=== PATIENT | male | born 1930 | race African-American/Black ===

== ENCOUNTER 2017-04-20 12:52 | Outpatient (CLI) | payer MEDICARE, OTHER ==
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
== END 2017-04-20 12:53 | disposition home or self-care (01) ==
LOC: WCC 12:52
PROVIDERS: ATTEND Family Medicine
DX: E11.621 Type 2 diabetes mellitus with foot ulcer (principal); L97.519 Non-pressure chronic ulcer of other part of right foot with unspecified severity; I10 Essential (primary) hypertension; Z85.038 Personal history of other malignant neoplasm of large intestine
CPT/HCPCS: 36416; 97602; 99203; G0463

== ENCOUNTER 2017-04-22 10:40 | Outpatient (CLI) | payer OTHER ==
[2017-04-22] MEDS ORDERED: Lidocaine 4% Topical Sol 50 ML BOT ONE (11:11)
[2017-04-22] MEDS ORDERED: Sodium Chloride 0.9% 15 ML NEB ONE (11:11)
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
== END 2017-04-22 10:41 | disposition home or self-care (01) ==
LOC: WCC 10:40
PROVIDERS: ATTEND Family Medicine
DX: E11.621 Type 2 diabetes mellitus with foot ulcer (principal); L97.419 Non-pressure chronic ulcer of right heel and midfoot with unspecified severity; I10 Essential (primary) hypertension; I82.419 Acute embolism and thrombosis of unspecified femoral vein
CPT/HCPCS: 29581; 36416; A4218; J2001

== ENCOUNTER 2017-04-24 12:54 | Outpatient (CLI) | payer OTHER | END 2017-04-24 12:55 | disposition home or self-care (01) | LOC: WCC 12:54 | PROVIDERS: ATTEND Family Medicine | DX: E11.621 Type 2 diabetes mellitus with foot ulcer (principal); L97.519 Non-pressure chronic ulcer of other part of right foot with unspecified severity | CPT/HCPCS: 97606 ==

== ENCOUNTER 2017-04-29 10:15 | Outpatient (CLI) | payer OTHER ==
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
== END 2017-04-29 10:16 | disposition home or self-care (01) ==
LOC: WCC 10:15
PROVIDERS: ATTEND Family Medicine
DX: E11.621 Type 2 diabetes mellitus with foot ulcer (principal); L97.419 Non-pressure chronic ulcer of right heel and midfoot with unspecified severity; I10 Essential (primary) hypertension; I82.419 Acute embolism and thrombosis of unspecified femoral vein
CPT/HCPCS: 36416; 97605

== ENCOUNTER 2017-05-08 12:49 | Outpatient (CLI) | payer OTHER, SELFPAY | END 2017-05-08 12:50 | disposition home or self-care (01) | LOC: WCC 12:49 | PROVIDERS: ATTEND Family Medicine | DX: E11.621 Type 2 diabetes mellitus with foot ulcer (principal); L97.519 Non-pressure chronic ulcer of other part of right foot with unspecified severity | CPT/HCPCS: 97606 ==

== ENCOUNTER 2017-05-11 08:35 | Outpatient (CLI) | payer OTHER ==
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
== END 2017-05-11 08:36 | disposition home or self-care (01) ==
LOC: WCC 08:35
PROVIDERS: ATTEND Family Medicine
DX: E11.621 Type 2 diabetes mellitus with foot ulcer (principal); L97.519 Non-pressure chronic ulcer of other part of right foot with unspecified severity; I10 Essential (primary) hypertension; I82.419 Acute embolism and thrombosis of unspecified femoral vein
CPT/HCPCS: 36416; 97605

== ENCOUNTER 2017-05-14 09:35 | Outpatient (CLI) | payer SELFPAY ==
[2017-05-14] MEDS ORDERED: Sodium Chloride 0.9% 15 ML NEB ONE (16:56)
== END 2017-05-14 09:36 | disposition home or self-care (01) ==
LOC: WCC 09:35
PROVIDERS: ATTEND Family Medicine
DX: E11.621 Type 2 diabetes mellitus with foot ulcer (principal); L97.519 Non-pressure chronic ulcer of other part of right foot with unspecified severity
CPT/HCPCS: 36416; 97605; A4218

== ENCOUNTER 2017-05-18 08:19 | Outpatient (CLI) | payer MEDICARE, SELFPAY | END 2017-05-18 08:20 | disposition home or self-care (01) | LOC: WCC 08:19 | PROVIDERS: ATTEND Family Medicine | DX: E11.621 Type 2 diabetes mellitus with foot ulcer (principal); L97.519 Non-pressure chronic ulcer of other part of right foot with unspecified severity | CPT/HCPCS: 36416; 97606 ==

== ENCOUNTER 2017-05-20 09:23 | Outpatient (CLI) | payer SELFPAY ==
[2017-05-20] MEDS ORDERED: Lidocaine 2% Jelly 5 ML TUBE ONE (17:25)
== END 2017-05-20 09:24 | disposition home or self-care (01) ==
LOC: WCC 09:23
PROVIDERS: ATTEND Family Medicine
DX: E11.621 Type 2 diabetes mellitus with foot ulcer (principal); L97.519 Non-pressure chronic ulcer of other part of right foot with unspecified severity
CPT/HCPCS: 36416; 97606

== ENCOUNTER 2017-05-25 09:07 | Outpatient (CLI) | payer SELFPAY ==
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
[2017-05-25] MEDS ORDERED: Sodium Chloride 0.9% 15 ML NEB ONE (17:05)
== END 2017-05-25 09:08 | disposition home or self-care (01) ==
LOC: WCC 09:07
PROVIDERS: ATTEND Family Medicine
DX: E11.621 Type 2 diabetes mellitus with foot ulcer (principal); L97.519 Non-pressure chronic ulcer of other part of right foot with unspecified severity; I82.411 Acute embolism and thrombosis of right femoral vein; I10 Essential (primary) hypertension
CPT/HCPCS: 36416; A4218

== ENCOUNTER 2017-05-27 11:13 | Outpatient (CLI) | payer SELFPAY ==
[2017-05-27] MEDS ORDERED: Sodium Chloride 0.9% 15 ML NEB ONE (17:00)
[2017-05-27] MEDS ORDERED: Lidocaine 4% Topical Sol 50 ML BOT ONE (17:00)
== END 2017-05-27 11:14 | disposition home or self-care (01) ==
LOC: WCC 11:13
PROVIDERS: ATTEND Family Medicine
DX: E11.621 Type 2 diabetes mellitus with foot ulcer (principal); L97.419 Non-pressure chronic ulcer of right heel and midfoot with unspecified severity
CPT/HCPCS: 36416; 97606; A4218; J2001

== ENCOUNTER 2017-05-29 11:28 | Outpatient (CLI) | payer SELFPAY ==
[2017-05-29] MEDS ORDERED: Sodium Chloride 0.9% 15 ML NEB ONE (17:12)
== END 2017-05-29 11:29 | disposition home or self-care (01) ==
LOC: WCC 11:28
PROVIDERS: ATTEND Family Medicine
DX: E11.621 Type 2 diabetes mellitus with foot ulcer (principal); L97.419 Non-pressure chronic ulcer of right heel and midfoot with unspecified severity
CPT/HCPCS: 97606; A4218

== ENCOUNTER 2017-06-01 08:33 | Outpatient (CLI) | payer SELFPAY ==
[2017-06-01] MEDS ORDERED: Sodium Chloride 0.9% 15 ML NEB ONE (17:07)
== END 2017-06-01 08:34 | disposition home or self-care (01) ==
LOC: WCC 08:33
PROVIDERS: ATTEND Family Medicine
DX: E11.621 Type 2 diabetes mellitus with foot ulcer (principal); L97.419 Non-pressure chronic ulcer of right heel and midfoot with unspecified severity
CPT/HCPCS: 36416; 97605; A4218

== ENCOUNTER 2017-06-03 13:07 | Outpatient (CLI) | payer SELFPAY ==
[2017-06-03] MEDS ORDERED: Sodium Chloride 0.9% 15 ML NEB ONE (17:09)
== END 2017-06-03 13:08 | disposition home or self-care (01) ==
LOC: WCC 13:07
PROVIDERS: ATTEND Family Medicine
DX: E11.621 Type 2 diabetes mellitus with foot ulcer (principal); L97.419 Non-pressure chronic ulcer of right heel and midfoot with unspecified severity
CPT/HCPCS: 36416; 97605; A4218

== ENCOUNTER 2017-06-05 10:53 | Outpatient (CLI) | payer SELFPAY ==
[2017-06-05] MEDS ORDERED: Sodium Chloride 0.9% 15 ML NEB ONE (10:58)
== END 2017-06-05 10:54 | disposition home or self-care (01) ==
LOC: WCC 10:53
PROVIDERS: ATTEND Family Medicine
DX: E11.621 Type 2 diabetes mellitus with foot ulcer (principal); L97.419 Non-pressure chronic ulcer of right heel and midfoot with unspecified severity
CPT/HCPCS: 36416; 97605; A4218

== ENCOUNTER 2017-06-08 10:10 | Outpatient (CLI) | payer SELFPAY ==
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
[2017-06-08] MEDS ORDERED: Sodium Chloride 0.9% 15 ML NEB ONE (22:49)
== END 2017-06-08 10:11 | disposition home or self-care (01) ==
LOC: WCC 10:10
PROVIDERS: ATTEND Family Medicine
DX: E11.621 Type 2 diabetes mellitus with foot ulcer (principal); L97.519 Non-pressure chronic ulcer of other part of right foot with unspecified severity; I82.419 Acute embolism and thrombosis of unspecified femoral vein; I10 Essential (primary) hypertension; Z85.038 Personal history of other malignant neoplasm of large intestine
CPT/HCPCS: 36416; 97605; A4218

== ENCOUNTER 2017-06-10 14:25 | Outpatient (CLI) | payer SELFPAY | END 2017-06-10 14:26 | disposition home or self-care (01) | LOC: WCC 14:25 | PROVIDERS: ATTEND Family Medicine | DX: E11.621 Type 2 diabetes mellitus with foot ulcer (principal); L97.419 Non-pressure chronic ulcer of right heel and midfoot with unspecified severity | CPT/HCPCS: 97605 ==

== ENCOUNTER 2017-06-12 11:14 | Outpatient (CLI) | payer SELFPAY ==
[2017-06-12] MEDS ORDERED: Sodium Chloride 0.9% 15 ML NEB ONE (14:53)
== END 2017-06-12 11:15 | disposition home or self-care (01) ==
LOC: WCC 11:14
PROVIDERS: ATTEND Family Medicine
DX: E11.621 Type 2 diabetes mellitus with foot ulcer (principal); L97.419 Non-pressure chronic ulcer of right heel and midfoot with unspecified severity
CPT/HCPCS: 97606; A4218

== ENCOUNTER 2017-06-15 11:02 | Outpatient (CLI) | payer SELFPAY ==
[2017-06-15] MEDS ORDERED: Sodium Chloride 0.9% 15 ML NEB ONE (14:52)
== END 2017-06-15 11:03 | disposition home or self-care (01) ==
LOC: WCC 11:02
PROVIDERS: ATTEND Family Medicine
DX: E11.621 Type 2 diabetes mellitus with foot ulcer (principal); L97.519 Non-pressure chronic ulcer of other part of right foot with unspecified severity
CPT/HCPCS: 97606; A4218

== ENCOUNTER 2017-06-17 09:25 | Outpatient (CLI) | payer SELFPAY ==
[2017-06-17] MEDS ORDERED: Sodium Chloride 0.9% 15 ML NEB ONE (17:43)
== END 2017-06-17 09:26 | disposition home or self-care (01) ==
LOC: WCC 09:25
PROVIDERS: ATTEND Family Medicine
DX: E11.621 Type 2 diabetes mellitus with foot ulcer (principal); L97.519 Non-pressure chronic ulcer of other part of right foot with unspecified severity
CPT/HCPCS: 97605; A4218

== ENCOUNTER 2017-06-24 10:03 | Outpatient (CLI) | payer SELFPAY ==
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
[2017-06-24] MEDS ORDERED: Lidocaine 2% Jelly 5 ML TUBE ONE (17:48)
== END 2017-06-24 10:04 | disposition home or self-care (01) ==
LOC: WCC 10:03
PROVIDERS: ATTEND Family Medicine
DX: E11.621 Type 2 diabetes mellitus with foot ulcer (principal); L97.419 Non-pressure chronic ulcer of right heel and midfoot with unspecified severity; I82.419 Acute embolism and thrombosis of unspecified femoral vein; I10 Essential (primary) hypertension
CPT/HCPCS: 97605

== ENCOUNTER 2017-07-06 12:49 | Outpatient (CLI) | payer SELFPAY ==
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
[2017-07-06] MEDS ORDERED: Lidocaine 2% Jelly 5 ML TUBE ONE (16:57)
[2017-07-06] MEDS ORDERED: Sodium Chloride 0.9% 15 ML NEB ONE (16:57)
== END 2017-07-06 12:50 | disposition home or self-care (01) ==
LOC: WCC 12:49
PROVIDERS: ATTEND Family Medicine
DX: E11.621 Type 2 diabetes mellitus with foot ulcer (principal); L97.519 Non-pressure chronic ulcer of other part of right foot with unspecified severity; I10 Essential (primary) hypertension; I82.419 Acute embolism and thrombosis of unspecified femoral vein; Z85.038 Personal history of other malignant neoplasm of large intestine; Z98.890 Other specified postprocedural states
CPT/HCPCS: A4218

== ENCOUNTER 2017-07-15 13:10 | Outpatient (CLI) | payer SELFPAY ==
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
[2017-07-15] MEDS ORDERED: Sodium Chloride 0.9% 15 ML NEB ONE (21:21)
== END 2017-07-15 13:11 | disposition home or self-care (01) ==
LOC: WCC 13:10
PROVIDERS: ATTEND Family Medicine
DX: L97.519 Non-pressure chronic ulcer of other part of right foot with unspecified severity (principal); E11.621 Type 2 diabetes mellitus with foot ulcer; I10 Essential (primary) hypertension; I82.819 Embolism and thrombosis of superficial veins of unspecified lower extremity; Z85.038 Personal history of other malignant neoplasm of large intestine
CPT/HCPCS: 36416; A4218

== ENCOUNTER 2017-07-23 09:55 | Outpatient (CLI) | payer MEDICARE, SELFPAY ==
[2017-07-23] MEDS ORDERED: Sodium Chloride 0.9% 15 ML NEB ONE (13:37)
== END 2017-07-23 09:56 | disposition home or self-care (01) ==
LOC: WCC 09:55
PROVIDERS: ATTEND Family Medicine
DX: E11.621 Type 2 diabetes mellitus with foot ulcer (principal); L97.519 Non-pressure chronic ulcer of other part of right foot with unspecified severity
CPT/HCPCS: 29581; A4218

== ENCOUNTER 2017-07-30 14:29 | Outpatient (CLI) | payer SELFPAY | END 2017-07-30 14:30 | disposition home or self-care (01) | LOC: WCC 14:29 | PROVIDERS: ATTEND Family Medicine | DX: E11.621 Type 2 diabetes mellitus with foot ulcer (principal); L97.519 Non-pressure chronic ulcer of other part of right foot with unspecified severity | CPT/HCPCS: 29581; 36416 ==

== ENCOUNTER → 2017-08-05 | Outpatient (CLI) | payer MEDICARE, SELFPAY ==
[~2017-08-05] MED LIST: Sodium Chloride 0.9% 15 ML NEB ONE
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
== END ==
LOC: WCC 09:07
PROVIDERS: ATTEND Family Medicine
DX: E11.621 Type 2 diabetes mellitus with foot ulcer (principal); L97.519 Non-pressure chronic ulcer of other part of right foot with unspecified severity; I10 Essential (primary) hypertension; I82.419 Acute embolism and thrombosis of unspecified femoral vein; Z85.038 Personal history of other malignant neoplasm of large intestine
CPT/HCPCS: 29581; 36416; A4218

== ENCOUNTER 2017-08-12 13:22 | Outpatient (CLI) | payer OTHER ==
[2017-08-12] MEDS ORDERED: Sodium Chloride 0.9% 15 ML NEB ONE (17:11)
== END 2017-08-12 13:23 | disposition home or self-care (01) ==
LOC: WCC 13:22
PROVIDERS: ATTEND Family Medicine
DX: E11.621 Type 2 diabetes mellitus with foot ulcer (principal); L97.519 Non-pressure chronic ulcer of other part of right foot with unspecified severity; I82.419 Acute embolism and thrombosis of unspecified femoral vein; I10 Essential (primary) hypertension; Z90.49 Acquired absence of other specified parts of digestive tract; Z85.038 Personal history of other malignant neoplasm of large intestine
CPT/HCPCS: 29581; 36416; A4218

== ENCOUNTER 2017-08-19 10:03 | Outpatient (CLI) | payer OTHER ==
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
[2017-08-21] MEDS ORDERED: Sodium Chloride 0.9% 15 ML NEB ONE (15:57)
== END 2017-08-19 10:04 | disposition home or self-care (01) ==
LOC: WCC 10:03
PROVIDERS: ATTEND Family Medicine
DX: E11.621 Type 2 diabetes mellitus with foot ulcer (principal); L97.519 Non-pressure chronic ulcer of other part of right foot with unspecified severity; I82.419 Acute embolism and thrombosis of unspecified femoral vein; I10 Essential (primary) hypertension; Z85.038 Personal history of other malignant neoplasm of large intestine
CPT/HCPCS: 29581; 36416

== ENCOUNTER 2017-08-26 11:05 | Outpatient (CLI) | payer OTHER ==
--- NOTE | 2017-08-26 12:34 | PRG ---
DATE OF SERVICE: 08/26/2017 HISTORY: Mr. Aly Renee is a very pleasant 86-year-old gentleman, who presents to [facility] for evaluation of a wound of the dorsum of his right foot. At the time of the patient's last vis it, Silverlon, Webril, and the 3M Coban 2 layer compression system were applied to the ulceration of the dorsum of the right foot. Mr. Renee has no complaints today. He denies any fever or chills. PHYSICAL EXAMINATION: VITAL SIGNS: Temperature 97.4, pulse 66, respirations 16, blood pressure 165/71. Accu-Chek 126. EXTREMITIES: An ulceration of the dorsum of the right foot is present, which measures approximately 2.1 x 0.5 cm. The dimensions of the wound at the time of the patient's visit on 08/19/2017 were appr oximately 3.3 x 1.0 cm. The wound is healing without complications or any signs of infection. No pu rulent drainage is associated with the wound. No erythema of the skin surrounding the wound is prese nt. No maceration of the skin of the periwound is noted. A posterior tibial pulse is easily palpabl e on the right. Edema of the right foot is present on exam today. ASSESSMENT AND PLAN: 1. Ulceration of dorsum of right foot as described above. Silverlon, Webril, and the 3M Coban two-l gagandeep compression system will be applied to the ulceration today. The ulceration has almost healed co mpletely and Mr. Renee will be discharged from clinic today with followup on a p.r.n. basis. The eliana de la cruz has been seen by the coal deliverer today. The patient has been instructed to discontinue the comp ression wrap in 1 week if his wound is still present, he is to perform dressing changes of Silverlon followed by bordered gauze on a daily basis or 3 times per week after cleansing and irrigation until the wound has completely healed. The patient understands and is in agreement with the preceding [facility] plan. 2. Diabetes mellitus. The patient's Accu-Chek in clinic today is 126. The patient has been reminde d that for optimal wound healing, his blood glucoses should remain below 150. 3. History of colon carcinoma, status post surgery and chemotherapy. 4. Superficial femoral vein thrombosis. 5. Hypertension.
== END 2017-08-26 11:06 | disposition home or self-care (01) ==
LOC: WCC 11:05
PROVIDERS: ATTEND Family Medicine
DX: E11.621 Type 2 diabetes mellitus with foot ulcer (principal); L97.519 Non-pressure chronic ulcer of other part of right foot with unspecified severity; I10 Essential (primary) hypertension; I82.811 Embolism and thrombosis of superficial veins of right lower extremity; Z85.038 Personal history of other malignant neoplasm of large intestine
CPT/HCPCS: 29581; 36416